=== PATIENT | female | born 1990 | race Caucasian/White ===

== ENCOUNTER 2018-02-21 18:39 | Emergency (ER) | payer OTHER, BC ==
[2018-02-21] MEDS: FAMOTIDINE 20 MG TAB PO (21:04)
[2018-02-21] MEDS: predniSONE 20 MG TAB PO (21:05)
== END 2018-02-21 21:23 | disposition home or self-care (01) ==
LOC: M ED 18:39
DX: S50.862A Insect bite (nonvenomous) of left forearm, initial encounter (principal); W57.XXXA Bitten or stung by nonvenomous insect and other nonvenomous arthropods, initial encounter; Y92.89 Other specified places as the place of occurrence of the external cause
CPT/HCPCS: 99283